=== PATIENT | female | born 1955 | race Caucasian/White ===

== ENCOUNTER 2019-02-15 13:31 | Inpatient (IN) ==
[2019-02-15] MEDS ORDERED: NORMAL SALINE 1,000 ML IV ONE (13:46)
--- NOTE | 2019-02-15 13:47 | ERNOTE ---
Medical Problem HPI - Narrative Date of Service: 02/15/19 - General Chief Complaint: Nausea/Vomiting Time Seen by Provider: 02/15/19 13:40 Source: patient, RN notes reviewed, old records Exam Limitations: no limitations - Immun/Allergies/Home Medications Immunizations: IMMUNIZATION HX Immunizations Up to Date Yes History of Influenza Vaccine No Hx Pneumococcal Vaccination Yes Allergies/Adverse Reactions: Allergies No Known Allergies Allergy (Verified 02/15/19 13:37) Home Medications: HOME MEDICATIONS Cholecalciferol (Vitamin D3) [Vitamin D] 400 unit PO DAILY 04/20/14 [Last Taken Unknown] Cinnamon Bark [Cinnamon] 2,000 mg PO DAILY 04/20/14 [Last Taken Unknown] Duloxetine HCl [Cymbalta] 20 mg PO DAILY 04/20/14 [Last Taken Unknown] Folic Acid 0.8 mg PO DAILY 04/20/14 [Last Taken Unknown] Multivitamin [Multi-Vitamin Daily] 1 ea PO DAILY 04/20/14 [Last Taken Unknown] Zinc 50 mg PO DAILY 04/20/14 [Last Taken Unknown] Ferrous Sulfate [Iron] 65 mg PO DAILY 05/01/14 [Last Taken Unknown] Cyanocobalamin [Vitamin B-12] 1,000 mcg PO DAILY 05/02/14 [Last Taken Unknown] calcium carbonate 600 mg calcium (1,500 mg) tablet 600 mg PO BID tab 05/31/18 [Last Taken Unknown] glucosamine sulfate dipotassium chloride 1,000 mg capsule 1,500 mg PO BID cap 05/31/18 [Last Taken Unknown] magnesium 250 mg tablet 250 mg PO DAILY 05/31/18 [Last Taken Unknown] ropinirole 0.25 mg tablet 8 mg PO HS tab 05/31/18 [Last Taken Unknown] alendronate 70 mg tablet 70 mg PO QWEEK #14 tab 06/08/18 [Last Taken Unknown] enalapril 10 mg-hydrochlorothiazide 25 mg tablet 1 tab PO DAILY #90 tab 06/08/18 [Last Taken Unknown] prednisone 10 mg tablet 10 mg PO QID #100 tab 06/08/18 [Last Taken Unknown] methotrexate sodium 2.5 mg tablet 25 mg PO Q7D #120 tab 09/12/18 [Last Taken Unknown] salsalate 750 mg tablet 1,500 mg PO BID #360 tab 09/12/18 [Last Taken Unknown] sulfasalazine 500 mg tablet 1.5 g PO BID #270 tab 09/12/18 [Last Taken Unknown] metoprolol tartrate 50 mg tablet 50 mg PO BID #180 tab 10/02/18 [Last Taken Unknown] amlodipine 10 mg tablet 10 mg PO DAILY #90 tab 11/08/18 [Last Taken Unknown] - History of Present History Narrative: Garima is a 63 year old female brought to the ED from the internal medicine office for a rapid heart rate. She was being seen for a 3 month recheck, but she has also been sick with vomiting and diarrhea for 4 days. She reports being unable to tolerate any oral intake so far today, but she was able to take her blood pressure and RA medications. Her EKG from the clinic showed a A fib with RVR in the 150's. She has no prior history of this. She denies any chest pain, shortness of breath or palpitations. She had been having significant abdominal pain yesterday but reports this has improved today. She currently denies any nausea. Review of Systems - Review of Systems Constitutional: Present: fatigue, malaise. Absent: fever, chills EYE: Present: no symptoms reported ENT: Present: no symptoms reported Respiratory: Absent: shortness of breath, cough, orthopnea Cardiology: Absent: chest pain, palpitations, syncope, edema Gastrointestinal/Abdominal: Present: nausea, vomiting, diarrhea, abdominal pain, eating less, drinking less Genitourinary: Absent: dysuria, decreased urinary output Musculoskeletal: Absent: muscle pain, joint pain Skin: Absent: rash, lesions Neurological: Absent: headache, dizziness/light-headedness Endocrine: Present: no symptoms reported Hematologic/Lymphatic: Absent: easy bruising, easy bleeding Psych: Present: no symptoms reported Medical History (Updated 02/15/19 @ 15:39 by Renetta Palmer NP) H/O tooth extraction Onset Date: ~02/21/18 top pulled January 31 2018 bottom up Feb 21 2018; six teeth remain on the bottom; [facility] Asthma Onset Date: Unknown Hypertension Onset Date: Unknown Osteoporosis Onset Date: ~05/11/17 Bilateral femurs need repeat in 2 years Rheumatoid arthritis Onset Date: Unknown Sleep apnea Onset Date: Unknown Surgical History: Surgical History (Updated 05/31/18 @ 11:45 by Shaila Torres RN) History of hysterectomy Onset Date: ~02/2003 [facility] BSO Hx of total knee arthroplasty Onset Date: ~2012 2009 - bilateral 2013 - redone, bilateral S/P debridement Onset Date: ~04/10/08 Irrigation, debridement and closure; Tinguely - bleeding laceration left lower extremity, 6cm Family History: Family History (Updated 05/31/18 @ 11:46 by Shaila Torres RN) Brother , age 55; unknown cause No problems noted. Father , age 69 Heart disease Mother Heart disease Asthma Rheumatoid arthritis Social History: Preferred Language Setsw[place] Smoking Status Never smoker Abuse History No History of abuse Psych History No pertinent hx Alcohol Use none Drug Use none (Last Updated 02/15/19 @ 13:35 by Davide Moreno MD) No Social History Section defined Physical Exam - Physical Exam General Appearance: Present: wd/wn, alert, other - In no acute distress but appears to not feel well Head Exam: Present: normal inspection Eye Exam: Normal inspection: bilateral Ears, Nose, Throat: Present: normal ENT inspection, normal pharynx. Absent: dry mucous membranes Neck: Present: normal inspection, nontender, supple Respiratory: Present: no respiratory distress, normal breath sounds, no access ory muscle use, lungs clear Cardiovascular/Chest: Present: tachycardia, irregularly irregular Gastrointestinal/Abdominal: Present: normal bowel sounds, nontender, nondistended, soft Extremity Exam: Present: normal inspection, non-tender, no edema Neurological Exam: Present: alert, oriented, normal mood/affect, no motor/sensory deficits Skin Exam: Present: warm/dry, pallor Progress - Results and Orders Patient's Lab Results:: I have reviewed the patient's lab results. - Vital Signs Patient's Vital Signs:: I have reviewed the patient's vital signs. Vital Signs: Vital Signs 02/15/19 13:33 Temperature 36 C Pulse Rate 140 H Respiratory Rate 17 O2 Sat by Pulse Oximetry 97 - EKG EKG #1 EKG: atrial fibrillation - Rate 151 EKG read: Reviewed by me - X-Ray X-Ray #1 X-Ray: chest Interpretation: Reviewed by me X-ray Comments: Chest PA Lateral * Hyperinflated lung volumes, with hyperlucent appearance of the lungs. No consolidation or mass. Mildly increased pulmonary vascular markings noted. No pneumothorax or pleural fluid collections. Borderline cardiomegaly. Mild tortuosity of the thoracic aorta noted, with overlying atherosclerotic vascular calcifications. Trachea is in normal position. Bones demonstrate multiple levels of contiguous syndesmophytes within the upper to midthoracic spine with multiple disc calcifications, suggestive of potential ankylosis spondylitis. IMPRESSION: 1. No focal acute cardiopulmonary finding. 2. Hyperinflated and hyperlucent lungs. Consider underlying acute versus chronic bronchitis/reactive airways disease versus COPD. 3. Borderline cardiomegaly. Mild pulmonary venous congestion. 4. Additional comments are as above. Electronically signed by Jocelyn Arnett M.D.. X-Ray #2 X-Ray: abdomen Interpretation: Reviewed by me X-ray Comments: Abdomen Flat W/ Upright *: No subdiaphragmatic free air. No abnormal dilation of large or small bowel. View air-fluid levels are noted within nondilated small and large segments throughout the abdomen. Multiple calcific ations are projecting over the lower abdomen bilaterally, some which appear to be projecting outside of the abdominal wall, which on the previous CT examination was within the subcutaneous fat in the lower back. There is no definite signs of nephrolithiasis or ureterolithiasis. Osseous structures are intact. Degenerative changes of the thoracolumbar spine and bilateral hips noted. IMPRESSION: 1. Air-fluid levels within small and large bowel segments, suggestive of either enteritis or colitis. There is no definite signs of mechanical intestinal obstruction. 2. Additional comments are as above. Electronically signed by Jocelyn Arnett M.D.. - Progress/Reassessment Chief Complaint: Nausea/Vomiting Progress:: Improved Progress Note-Subjective: 02/15/19 15:47 The patient remains in atrial fib with a rate on 130's to 150's after Cardizem bolus x2. Drip ordered. Patient remains asymptomatic with regards to the atrial fib. She has not had any further vomiting or diarrhea while in the ED and is currently drinking water. Message left for Dr. Sadler regarding admission. 02/15/19 16:[address] Sadler, the patient will be admitted to SCU on the Cardizem drip. Heart rate is currently in the 140's with a BP of 111/78. The patient reports feeling better after getting IV fluids and is in agreement with plans for admission. Departure Clinical Impression: Atrial fibrillation with rapid ventricular response, Vomiting and diarrhea - Departure Disposition: Still a patient Condition: Stable
[2019-02-15 14:10] LABS: Hematocrit 40.1 % (37.0-47.0); Mean Cell Volume 82.9 fl (78-100); Mean Corpuscular Hemoglobin 26.9 pg (27-31); Mean Corpuscular Hgb Conc 32.4 g/dl (32-36); Mean Platelet Volume 10.8 fl (8-12.5); Neutrophil # 6.9 K/mm3 (1.3-6.0); Neutrophil % 72.2 % (42-75.0); Platelet Count 300 K/mm3 (150-450); Red Blood Count 4.84 M/mm3 (4.2-5.4); Red Cell Distribution Width 14.3 % (11.5-14.0); White Blood Count 9.6 K/mm3 (4.0-10.5)
[2019-02-15 14:22] LABS: Albumin * 3.2 gm/dl (3.4-5.0); Anion Gap 15.1 mmol/L (6.8-13.8); BUN/Creatinine Ratio 20.9 (9.0-21.6); Bilirubin, Total 0.7 mg/dL (0.0-1.1); Ca. Corrected For Albumin 9.8 mg/dL (8.4-10.2); Calcium * 9.5 mg/dL (7.9-10.9); Carbon Dioxide 24.9 mmol/L (24-32.6); Total Protein 7.8 gm/dL (6.2-8.2)
[2019-02-15] MEDS ORDERED: DILTIAZEM HCL 5 MG/ML VIAL IV ONE ×2 (14:27→15:21)
[2019-02-15 14:50] LABS: Troponin I Less than 0.017 ng/mL (0.00-0.10)
[2019-02-15 14:53] LABS: BNP * 1898 pg/mL (5-205)
[2019-02-15] MEDS ORDERED: DILTIAZEM HCL 125 MG in DEXTROSE 5 % IN WATER 100 ML IV PRN ×2 (15:34)
[2019-02-15] MEDS ORDERED: FUROSEMIDE 10 MG/ML VIAL IV ONE (16:09)
[2019-02-15] MEDS ORDERED: FUROSEMIDE 10 MG/ML VIAL ONE (17:27)
[2019-02-15] MEDS ORDERED: AMIODARONE HCL 150 MG/100 ML PIGGYBACK IV ONE ×2 (18:15→19:25)
--- NOTE | 2019-02-15 18:37 | HP ---
Chief Complaint - Chief Complaint Date of Service: 02/15/19 Time of Service: 18:00 Chief Complaint: atrial fib with RVR. History of Present Illness: Vanessa Jolly is a 63-year-old female who presented to the ER because of fatigue. She has long-standing history of rheumatoid arthritis for which she takes many medications and supplements. About 2 weeks ago she noticed that she was not feeling as well as usual and has had just progressive fatigue since that time. Evaluation in the emergency room determined that she is in atrial fibrillation with rapid ventricular response rate of 150 to 190 bpm. She is tolerating it remarkably well. There is no dyspnea. Neck veins are not distended and the HJR is negative at 45 degrees. There is no peripheral edema. She has no chest pressure heaviness or other discomfort. She has never had this happen before that she is aware. She was given Cardizem bolus and placed on a Cardizem drip in the emergency room and it has not converted her. She is admitted to the SCU unit to try to to chemically convert her. Because we are uncertain as to when the atrial fib actually started she is not a candidate for DC cardioversion at this time. She is not anticoagulated. Medical History (Updated 02/15/19 @ 15:39 by Renetta Palmer NP) H/O tooth extraction Onset Date: ~02/21/18 top pulled January 31 2018 bottom up Feb 21 2018; six teeth remain on the bottom; [facility] Asthma Onset Date: Unknown Hypertension Onset Date: Unknown Osteoporosis Onset Date: ~05/11/17 Bilateral femurs need repeat in 2 years Rheumatoid arthritis Onset Date: Unknown Sleep apnea Onset Date: Unknown Surgical History: Surgical History (Updated 05/31/18 @ 11:45 by Shaila Torres RN) History of hysterectomy Onset Date: ~02/2003 [facility] BSO Hx of total knee arthroplasty Onset Date: ~2012 2009 - bilateral 2013 - redone, bilateral S/P debridement Onset Date: ~04/10/08 Irrigation, debridement and closure; Tinguely - bleeding laceration left lower extremity, 6cm Family History: Family History (Updated 05/31/18 @ 11:46 by Shaila Torres RN) Brother , age 55; unknown cause No problems noted. Father , age 69 Heart disease Mother Heart disease Asthma Rheumatoid arthritis Social History: Patient Lives/Resources Home Utilized Occupation disabled Preferred Language Tajik Do you have any scientologist or No cultural preference? Smoking Status Never smoker Have you smoked in the past 12 No months Do you dip or chew tobacco No Abuse History No History of abuse Psych History No pertinent hx Alcohol Use none Drug Use none (Last Updated 02/15/19 @ 13:35 by Davide Moreno MD) No Social History Section defined Review Of Systems (GEN) - Review of Systems Generalized/Overall Review: Present: Weakness, Malaise, Fatigue EENTM: Present: No Symptoms Reported Respiratory: Present: No Symptoms Reported Cardiac: Present: Palpitations Abdominal: Present: No Symptoms Reported Genitourinary: Present: No Symptoms Reported Musculoskeletal: Present: Joint Pain - Due to long-standing rheumatoid arthritis Neurological: Present: No Symptoms Reported Skin: Present: No Symptoms Reported Endocrine: Present: No Symptoms Reported Immunizations: IMMUNIZATION HX Immunizations Up to Date Yes History of Influenza Vaccine No Hx Pneumococcal Vaccination Yes Allergies/Adverse Reactions: Allergies Allergy/AdvReac Type Severity Reaction Status Date / Time No Known Allergies Allergy Verified 02/15/19 16:41 Home Medications: HOME MEDICATIONS Cholecalciferol (Vitamin D3) [Vitamin D] 400 unit PO DAILY 04/20/14 [Last Taken Unknown] Cinnamon Bark [Cinnamon] 2,000 mg PO DAILY 04/20/14 [Last Taken Unknown] Duloxetine HCl [Cymbalta] 20 mg PO DAILY 04/20/14 [Last Taken Unknown] Folic Acid 0.8 mg PO DAILY 04/20/14 [Last Taken Unknown] Multivitamin [Multi-Vitamin Daily] 1 ea PO DAILY 04/20/14 [Last Taken Unknown] Zinc 50 mg PO DAILY 04/20/14 [Last Taken Unknown] Ferrous Sulfate [Iron] 65 mg PO DAILY 05/01/14 [Last Taken Unknown] Cyanocobalamin [Vitamin B-12] 1,000 mcg PO DAILY 05/02/14 [Last Taken Unknown] calcium carbonate 600 mg calcium (1,500 mg) tablet 600 mg PO BID tab 05/31/18 [Last Taken Unknown] glucosamine sulfate dipotassium chloride 1,000 mg capsule 1,500 mg PO BID cap 05/31/18 [Last Taken Unknown] magnesium 250 mg tablet 250 mg PO DAILY 05/31/18 [Last Taken Unknown] alendronate 70 mg tablet 70 mg PO QWEEK #14 tab 06/08/18 [Last Taken Unknown] enalapril 10 mg-hydrochlorothiazide 25 mg tablet 1 tab PO DAILY #90 tab 06/08/18 [Last Taken Unknown] methotrexate sodium 2.5 mg tablet 25 mg PO Q7D #120 tab 09/12/18 [Last Taken Unknown] salsalate 750 mg tablet 1,500 mg PO BID #360 tab 09/12/18 [Last Taken Unknown] sulfasalazine 500 mg tablet 1.5 g PO BID #270 tab 09/12/18 [Last Taken Unknown] metoprolol tartrate 50 mg tablet 50 mg PO BID #180 tab 10/02/18 [Last Taken Unknown] amlodipine 10 mg tablet 10 mg PO DAILY #90 tab 11/08/18 [Last Taken Unknown] Exam - Exam Vital Signs: Vital Signs - Last Taken Temp 36 C 02/15/19 13:33 Pulse 148 H 02/15/19 17:40 Resp 16 02/15/19 17:40 BP 140/86 02/15/19 17:40 Pulse Ox 97 02/15/19 16:40 Constitutional: Present: Alert, Oriented x3, Cooperative, Well developed, Well nourished, No distress ENT Exam: Present: normal ENT inspection, hearing grossly normal, pharynx normal, TMs normal Eye Exam: bilateral eye: normal inspection, PERRL, EOMI Neck: Present: non-tender, full range of motion, supple, normal inspection, trachea midline Back Exam: Present: normal inspection, no CVA tenderness, no vertebral tenderness Breasts: Present: Exam deferred Respiratory: Present: chest non-tender, lungs clear, normal breath sounds, no respiratory distress, no accessory muscle use Cardiovascular/Chest: Present: no edema, no gallop, no JVD, no murmur, no rub, tachycardia, irregularly irregular Peripheral Pulses: carotid (R): 2+, carotid (L): 2+, radial (R): 2+, radial (L): 2+ Abdomen: Present: Normal bowel sounds, soft, nontender, nondistended, no rebound tenderness, no hepatospenomegaly, no masses /Rectal: Present: Exam deferred Extremity: Present: normal range of motion, other - Polyarthralgias. She has had both knees replaced twice and is looking at a third time. Skin Exam: Present: warm/dry, pallor Lymphatic: Present: no adenopathy Neurologic: Present: sound printer II-XII nml as tested, alert, normal mood/affect, oriented x 3 Appearance: Present: appropriate appearance, appropriate insight, neat, no memory impairment Eye contact: Present: cooperative, good eye contact, normal speech Thoughts: Present: normal thought pattern, no apparent hallucination Diagnostic Studies: Abnormal Lab Results 02/15/19 02/15/19 02/15/19 Range/Units 14:02 14:02 14:12 MCH 26.9 L (27-31) pg RDW 14.3 H (11.5-14.0) % Immature Gran % (Auto) 0.50 H (0.001-0.429) % Immature Gran # (Auto) 0.05 H (0.000-0.0310) K/mm3 Lymphocytes % 15.1 L (20-51) % Monocytes % 11.9 H (0.0-9) % Neutrophils # 6.9 H (1.3-6.0) K/mm3 Lymphocytes # 1.45 L (1.5-3.5) k/mm3 Monocytes # 1.1 H (0.0-1.0) k/mm3 Anion Gap 15.1 H (6.8-13.8) mmol/L Random Glucose 157 H (70-110) mg/dL B-Natriuretic Peptide 1898 H (5-205) pg/mL Albumin 3.2 L (3.4-5.0) gm/dl HDL Cholesterol (40-60) mg/dL 02/15/19 Range/Units 14:46 MCH (27-31) pg RDW (11.5-14.0) % Immature Gran % (Auto) (0.001-0.429) % Immature Gran # (Auto) (0.000-0.0310) K/mm3 Lymphocytes % (20-51) % Monocytes % (0.0-9) % Neutrophils # (1.3-6.0) K/mm3 Lymphocytes # (1.5-3.5) k/mm3 Monocytes # (0.0-1.0) k/mm3 Anion Gap (6.8-13.8) mmol/L Random Glucose (70-110) mg/dL B-Natriuretic Peptide (5-205) pg/mL Albumin (3.4-5.0) gm/dl HDL Cholesterol 39 L (40-60) mg/dL Laboratory Results WBC 9.6 K/mm3 (4.0-10.5) 02/15/19 14:02 RBC 4.84 M/mm3 (4.2-5.4) 02/15/19 14:02 Hgb 13.0 gm/dL (12.5-16.0) 02/15/19 14:02 Hct 40.1 % (37.0-47.0) 02/15/19 14:02 MCV 82.9 fl (78-100) 02/15/19 14:02 MCH 26.9 pg (27-31) L 02/15/19 14:02 MCHC 32.4 g/dl (32-36) 02/15/19 14:02 RDW 14.3 % (11.5-14.0) H 02/15/19 14:02 Plt Count 300 K/mm3 (150-450) 02/15/19 14:02 MPV 10.8 fl (8-12.5) 02/15/19 14:02 Immature Gran % (Auto) 0.50 % (0.001-0.429) H 02/15/19 14:02 Immature Gran # (Auto) 0.05 K/mm3 (0.000-0.0310) H 02/15/19 14:02 72.2 % (42-75.0) 02/15/19 14:02 15.1 % (20-51) L 02/15/19 14:02 11.9 % (0.0-9) H 02/15/19 14:02 0.1 % (0.0-3.0) 02/15/19 14:02 0.2 % (0.0-1.0) 02/15/19 14:02 Nucleated RBC % 0.0 k/mm3 (0-1) 02/15/19 14:02 6.9 K/mm3 (1.3-6.0) H 02/15/19 14:02 1.45 k/mm3 (1.5-3.5) L 02/15/19 14:02 1.1 k/mm3 (0.0-1.0) H 02/15/19 14:02 0.0 k/mm3 (0.0-0.7) 02/15/19 14:02 Absolute Basophils 0.0 k/mm3 (0.0-0.1) 02/15/19 14:02 Sodium 137 mmol/L (132-142) 02/15/19 14:02 138 mmol/L (130-142) 02/15/19 14:02 Potassium 4.0 mmol/L (3.4-4.6) 02/15/19 14:02 Chloride 101 mmol/L (97-106) 02/15/19 14:02 Carbon Dioxide 24.9 mmol/L (24-32.6) 02/15/19 14:02 15.1 mmol/L (6.8-13.8) H 02/15/19 14:02 BUN 14 mg/dL (3-23) 02/15/19 14:02 0.67 mg/dL (0.4-1.4) 02/15/19 14:02 Est GFR (Non-Af Amer) 94 mL/min (60-130) D 02/15/19 14:02 20.9 (9.0-21.6) 02/15/19 14:02 157 mg/dL (70-110) H 02/15/19 14:02 Calcium 9.5 mg/dL (7.9-10.9) 02/15/19 14:02 Calcium Adj for Albumin 9.8 mg/dL (8.4-10.2) 02/15/19 14:02 Magnesium 2.1 mg/dL (1.2-2.8) 02/15/19 13:35 0.7 mg/dL (0.0-1.1) 02/15/19 14:02 AST 35 U/L (0-48) 02/15/19 14:02 ALT 42 U/L (19-67) 02/15/19 14:02 124 U/L (50-170) 02/15/19 14:02 Less than 0.017 ng/mL (0.00-0.10) 02/15/19 14:12 B-Natriuretic Peptide 1898 pg/mL (5-205) H 02/15/19 14:12 7.8 gm/dL (6.2-8.2) 02/15/19 14:02 3.2 gm/dl (3.4-5.0) L 02/15/19 14:02 Triglycerides 82 mg/dL (30-200) 02/15/19 14:46 Cholesterol 159 mg/dL (0-200) 02/15/19 14:46 104 mg/dL (70-130) 02/15/19 14:46 16 mg/dL (5-40) 02/15/19 14:46 39 mg/dL (40-60) L 02/15/19 14:46 4.0 mg/dL (3.3-4.4) 02/15/19 14:46 Assessment/Plan - Narrative Narrative: Since the Cardizem is at max dose and has not even slowed her heart rate down I will abandon that and change to amiodarone using our protocol. We will start with the 150 mg over 10 minutes at a rate of 15 mg/min. This will then be followed by the slow load of 360 mg over 6 hours or 1 mg/min. I reconciled her medications and held a lot of her supplements. I have continued most of the prescriptive meds. Please see list. She has been given 40 mg of Lasix IV in the emergency room and is diuresing well at this time. Chest x-ray appears to have some mild pulmonary vascular congestion. I suspect that she has been in his atrial fibrillation and RVR for it may be as much as 2 weeks since test when she started feeling badly. Causes unknown at this point. - Assessment/Plan (1) Atrial fibrillation with rapid ventricular response Problem: Acute (2) Rheumatoid arthritis Problem: Acute Qualifiers: Rheumatoid arthritis location: multiple sites Rheumatoid factor presence: with rheumatoid factor Qualified Code(s): M05.79 - Rheumatoid arthritis with rheumatoid factor of multiple sites without organ or systems involvement
[2019-02-15] MEDS: AMIODARONE HCL 900 MG in DEXTROSE 5 % IN WATER 500 ML IV SCH ×2 (19:54)
[2019-02-15] MEDS ORDERED: sulfaSALAzine 500 MG TABLET PO SCH (21:00)
[2019-02-15] MEDS: sulfaSALAzine 500 MG TABLET PO SCH (21:06)
[2019-02-15] MEDS: METOPROLOL TARTRATE 50 MG TABLET PO SCH (21:08)
[2019-02-15] MEDS: SALSALATE 500 MG TABLET PO SCH (21:08)
[2019-02-16] MEDS ORDERED: DIGOXIN 0.25 MG/ML AMPUL IV SCH (06:15)
[2019-02-16] MEDS: SALSALATE 500 MG TABLET PO SCH ×2 (08:06→20:48)
[2019-02-16] MEDS: DULoxetine HCL 20 MG CAPSULE.SA PO SCH (08:06)
[2019-02-16] MEDS: amLODIPine BESYLATE 10 MG TABLET PO SCH (08:06)
[2019-02-16] MEDS: FOLIC ACID 0.4 MG TABLET PO SCH (08:06)
[2019-02-16] MEDS: sulfaSALAzine 500 MG TABLET PO SCH ×2 (08:06→20:48)
[2019-02-16] MEDS: FERROUS SULFATE 325 MG TABLET PO SCH (08:06)
[2019-02-16] MEDS: ENALAPRIL MALEATE 5 MG TABLET PO SCH (08:07)
[2019-02-16] MEDS: METOPROLOL TARTRATE 50 MG TABLET PO SCH (08:07)
[2019-02-16] MEDS: HYDROCHLOROTHIAZIDE 25 MG TABLET PO SCH (08:07)
--- NOTE | 2019-02-16 08:42 | CONS ---
- Reason for consultation (1) Atrial fibrillation with rapid ventricular response Date of Service: 02/16/19 HPI - General Date of Service: 02/16/19 Source: patient Exam Limitations: no limitations - History of Present Illness Initial Comments: Giulia Jolly is a 63-year-old white female patient of Dr. Moreno who was admitted on 02/15/[address] Sadler because of atrial fibrillation with rapid ventricular response. The patient was seen in her PCP's office and was found to be in atrial fibrillation with rapid ventricular response. She was sent to the emergency room where EKG and telemetry showed atrial fibrillation with a ventricular response of 140s to 150s. Her troponin was normal and her BNP was elevated at 1898. Her electrolytes were all within normal. 4 days prior to admission she started having diarrhea, 4-5 times a day initially big volume then settled down to small volume associated at times with nausea and vomiting. She denied any fever or chills, denies any chest pain or shortness of breath, denied any palpitations. Her abdominal x-ray did show possible colitisenteritis. She was given 2 boluses of Cardizem IV and was started on Cardizem drip and transferred to the unit. Her ventricular rapid response remained in the 130s- 150s despite maximum dose of Cardizem drip. Dr. Sadler discontinued her Cardizem drip and started her on 150 mg of amiodarone bolus and maintenance amiodarone drip. So far she has received a total dose of about 650-700 mg of amiodarone. She also received 1 dose of IV digoxin 0.25 mg. She is still in the 150s but hemodynamically stable and asymptomatic. On further questioning she said that her last visit was 3 months ago with her PCP and at that time she did have episodes of palpitation/rapid heartbeat which lasted for 5 to 6 weeks which resolved spontaneously. Timing/Duration: intermittent Allergies/Adverse Reactions: Allergies No Known Allergies Allergy (Verified 02/15/19 16:41) Home Medications: Home Medications Medication Instructions Recorded Last Taken Cholecalciferol (Vitamin D3) 400 unit PO DAILY 04/20/14 Unknown [Vitamin D] Cinnamon Bark [Cinnamon] 2,000 mg PO DAILY 04/20/14 Unknown Duloxetine HCl [Cymbalta] 20 mg PO DAILY 04/20/14 Unknown Folic Acid 0.8 mg PO DAILY 04/20/14 Unknown Multivitamin [Multi-Vitamin Daily] 1 ea PO DAILY 04/20/14 Unknown Zinc 50 mg PO DAILY 04/20/14 Unknown Ferrous Sulfate [Iron] 65 mg PO DAILY 05/01/14 Unknown Cyanocobalamin [Vitamin B-12] 1,000 mcg PO DAILY 05/02/14 Unknown calcium carbonate 600 mg calcium 600 mg PO BID tab 05/31/18 Unknown (1,500 mg) tablet glucosamine sulfate dipotassium 1,500 mg PO BID cap 05/31/18 Unknown chloride 1,000 mg capsule magnesium 250 mg tablet 250 mg PO DAILY 05/31/18 Unknown alendronate 70 mg tablet 70 mg PO QWEEK #14 tab 06/08/18 Unknown enalapril 10 1 tab PO DAILY #90 tab 06/08/18 Unknown mg-hydrochlorothiazide 25 mg tablet methotrexate sodium 2.5 mg tablet 25 mg PO Q7D #120 tab 09/12/18 Unknown salsalate 750 mg tablet 1,500 mg PO BID #360 tab 09/12/18 Unknown sulfasalazine 500 mg tablet 1.5 g PO BID #270 tab 09/12/18 Unknown metoprolol tartrate 50 mg tablet 50 mg PO BID #180 tab 10/02/18 Unknown amlodipine 10 mg tablet 10 mg PO DAILY #90 tab 11/08/18 Unknown Procedures Closure of skin and subcutaneous tissue of other sites (04/10/08) INJECT STEROID (02/06/10) INJECT/INFUSE NEC (02/06/10) INJECTION INTO JOINT (02/06/10) OTHER JOINT MOBILIZATION (02/06/10) Other dilation and curettage (10/22/02) TOTAL KNEE REPLACEMENT (01/01/10) Medications - Medications Current Medications: Current Medications Amlodipine Besylate (Norvasc) 10 mg PO DAILY [facility] Stop: 03/18/19 09:01 Last Admin: 02/16/19 08:06 Dose: 10 mg Documented by: Digoxin (Lanoxin) 0.25 mg IV Q6H [facility] Stop: 02/16/19 12:16 Last Admin: 02/16/19 06:56 Dose: 0.25 mg Documented by: Duloxetine HCl (Cymbalta) 20 mg PO DAILY [facility] Stop: 03/18/19 09:01 Last Admin: 02/16/19 08:06 Dose: 20 mg Documented by: Enalapril Maleate (Vasotec) 10 mg PO DAILY [facility] Stop: 03/18/19 09:01 Last Admin: 02/16/19 08:07 Dose: 10 mg Documented by: Ferrous Sulfate (Ferrous Sulfate) 325 mg PO DAILY [facility] Stop: 03/18/19 09:01 Last Admin: 02/16/19 08:06 Dose: 325 mg Documented by: Folic Acid (Folic Acid) 0.8 mg PO DAILY [facility] Stop: 03/18/19 09:01 Last Admin: 02/16/19 08:06 Dose: 0.8 mg Documented by: Hydrochlorothiazide (Hydrodiuril) 25 mg PO DAILY [facility] Stop: 03/18/19 09:01 Last Admin: 02/16/19 08:07 Dose: 25 mg Documented by: Amiodarone HCl 900 mg/ (Dextrose/Water) 518 mls @ 0 mls/hr IV Q24H [facility]; Protocol Stop: 02/16/19 19:06 Last Titration: 02/16/19 01:55 Dose: 16.7 mls/hr Documented by: Metoprolol Tartrate (Lopressor) 50 mg PO BID [facility] Stop: 03/17/19 21:01 Last Admin: 02/16/19 08:07 Dose: 50 mg Documented by: Salsalate (Disalcid) 1,500 mg PO BID [facility] Stop: 03/17/19 21:01 Last Admin: 02/16/19 08:06 Dose: 1,500 mg Documented by: Sulfasalazine (Azulfidine) 1,500 mg PO BID [facility] Stop: 03/17/19 21:01 Last Admin: 02/16/19 08:06 Dose: 1,500 mg Documented by: Review of Systems - Review of Systems Generalized/Overall Review: Absent: Chills, Fever EENTM: Absent: Blurred Vision Respiratory: Absent: Cough, Shortness of Breath, Orthopnea Cardiac: Absent: Chest Pain, Edema, Palpitations Abdominal: Present: Nausea, Vomiting, Diarrhea. Absent: Abdominal Pain Genitourinary: Absent: Urgency, Frequency Musculoskeletal: Absent: Joint Pain, Back Pain Neurological: Absent: Headache, Anxiety, Depressed Skin: Absent: Lesions, Rash Endocrine: Absent: Intolerance to Cold, Intolerance to Heat Misc: All systems neg except as marked Physical Examination - Exam Vital Signs: Vital Signs - Last Taken Temp 36.7 C 04/26/19 07:07 Pulse 164 H 02/16/19 08:07 Resp 16 02/16/19 08:10 BP 142/72 02/16/19 08:07 Pulse Ox 100 02/16/19 08:10 O2 Oxygen Delivery Method Room Air Constitutional: Present: Alert, Oriented x3, Cooperative ENT Exam: Present: hearing grossly normal Eye Exam: bilateral eye: normal inspection, PERRL, EOMI Neck: Present: supple Respiratory: Present: normal breath sounds, No rales, No wheezing Cardiovascular/Chest: Present: no JVD, no murmur, tachycardia, irregularly irregular Abdomen: Present: Normal bowel sounds, soft, nontender, nondistended Extremity: Present: no pedal edema, no calf tenderness - Results and Findings: Lab/Microbiology results last 24 hrs: Abnormal/Pending Laboratory Last 24 HRS 02/15/19 02/15/19 02/15/19 14:46 14:12 14:02 MCH RDW Immature Gran % (Auto) Immature Gran # (Auto) Lymphocytes % Monocytes % Neutrophils # Lymphocytes # Monocytes # Anion Gap 15.1 H Random Glucose 157 H B-Natriuretic Peptide 1898 H Albumin 3.2 L HDL Cholesterol 39 L 02/15/19 14:02 MCH 26.9 L RDW 14.3 H Immature Gran % (Auto) 0.50 H Immature Gran # (Auto) 0.05 H Lymphocytes % 15.1 L Monocytes % 11.9 H Neutrophils # 6.9 H Lymphocytes # 1.45 L Monocytes # 1.1 H Anion Gap Random Glucose B-Natriuretic Peptide Albumin HDL Cholesterol - Assessments/Findings (1) Atrial fibrillation with rapid ventricular response Diagnosis(s): She remains with RVR but hemodynamically stable. Continue with IV amiodarone drip. will advance another 0.25 mg of IV digoxin now and do 0.125 mg IV q 6 hours x 4 doses. She is already on metoprolol from home. will get Echo and add TSH to her labs. She needs to be anticoagualted with coumadin or one of the newer anticoagulants. It looks she has PAF/Intermittent AFib . Since we are not sure when she started to have her AFib alternative plans are for anticoagulation for 4 weeks and then schedule her back for elective cardioverion if her ventricular rate is controlled or we can transfer her to a facility for DONNA and earlier cardioversion/ or schedule her outpatient for earlier elective DONNA and cardioversion if her HR is controlled. Discussed with Dr. Sadler- she can be on 2-4 drugs to control her HR but watch out for heart blocks. Addendum : Her TSH is 0.009 . Will add FT4 and thyroid peroxidase antibody. recommend increasing metoprolol tartrate to block peripheral effects of possible elevated thyroid hormones. Problem: Acute (2) Rheumatoid arthritis Problem: Acute Qualifiers: Rheumatoid arthritis location: multiple sites Rheumatoid factor presence: with rheumatoid factor Qualified Code(s): M05.79 - Rheumatoid arthritis with rheumatoid factor of multiple sites without organ or systems involvement (3) Vomiting and diarrhea Problem: Acute
[2019-02-16] MEDS ORDERED: DIGOXIN 0.25 MG/ML AMPUL IV ONE (08:45)
--- NOTE | 2019-02-16 09:30 | PN ---
Subjective - Date and Time Seen Date: 02/16/19 Time: 09:23 Subjective Narrative: Marian has had an uneventful night but continues to be in atrial fibrillation RVR. Initially will use Cardizem to his max dose and did not affect the rate. She was then changed to amiodarone last evening and has been on that through the night and that did not change the rate either. I started her on Lanoxin this morning. Dr. Valladares has graciously seen her in consultation this morning and is much appreciated. Has increased a loading dose of the Lanoxin. She will need an echocardiogram and perhaps a DONNA before electrocardioversion is attempted. I will keep her in [facility] being constantly monitored in case she were to develop a high degree block. Objective - Review of Systems Generalized/Overall Review: Reports: Weakness, Malaise, Fatigue EENTM: Reports: No Symptoms Reported Respiratory: Reports: No Symptoms Reported Cardiac: Reports: Palpitations Abdominal: Reports: No Symptoms Reported Genitourinary Symptoms: Reports: No Symptoms Reported Musculoskeletal Complaints: Reports: No Symptoms Reported Neurological: Reports: No Symptoms Reported Skin: Reports: No Symptoms Reported Endocrine: Reports: No Symptoms Reported - Vitals Vitals: Last Vital Signs Temp 36.7 C 02/16/19 07:07 Pulse 150 H 02/16/19 08:35 Resp 16 02/16/19 08:35 BP 146/73 02/16/19 08:35 Pulse Ox 100 02/16/19 08:35 - Abnormal Lab Findings Abnormal Lab Findings: Abnormal Lab Results 02/15/19 02/15/19 02/15/19 Range/Units 14:02 14:02 14:12 MCH 26.9 L (27-31) pg RDW 14.3 H (11.5-14.0) % Immature Gran % (Auto) 0.50 H (0.001-0.429) % Immature Gran # (Auto) 0.05 H (0.000-0.0310) K/mm3 Lymphocytes % 15.1 L (20-51) % Monocytes % 11.9 H (0.0-9) % Neutrophils # 6.9 H (1.3-6.0) K/mm3 Lymphocytes # 1.45 L (1.5-3.5) k/mm3 Monocytes # 1.1 H (0.0-1.0) k/mm3 Anion Gap 15.1 H (6.8-13.8) mmol/L Random Glucose 157 H (70-110) mg/dL B-Natriuretic Peptide 1898 H (5-205) pg/mL Albumin 3.2 L (3.4-5.0) gm/dl HDL Cholesterol (40-60) mg/dL 02/15/19 Range/Units 14:46 MCH (27-31) pg RDW (11.5-14.0) % Immature Gran % (Auto) (0.001-0.429) % Immature Gran # (Auto) (0.000-0.0310) K/mm3 Lymphocytes % (20-51) % Monocytes % (0.0-9) % Neutrophils # (1.3-6.0) K/mm3 Lymphocytes # (1.5-3.5) k/mm3 Monocytes # (0.0-1.0) k/mm3 Anion Gap (6.8-13.8) mmol/L Random Glucose (70-110) mg/dL B-Natriuretic Peptide (5-205) pg/mL Albumin (3.4-5.0) gm/dl HDL Cholesterol 39 L (40-60) mg/dL - EKG/Xray Findings EKG: supravent. tachycardia, atrial fibrillation EKG read: Reviewed by me - Exam Constitutional: Present: Alert, Oriented x3, Cooperative, Well developed, Well nourished, No distress ENT Exam: Present: normal ENT inspection, hearing grossly normal, pharynx normal Neck: Present: non-tender Breasts: Present: Exam deferred Respiratory: Present: chest non-tender Cardiovascular/Chest: Present: tachycardia, irregularly irregular Abdomen: Present: Normal bowel sounds, soft, nontender, nondistended, no rebound tenderness, no hepatospenomegaly, no masses /Rectal: Present: Exam deferred Extremity: Present: normal range of motion Skin Exam: Present: normal color Lymphatic: Present: no adenopathy Neurologic: Present: cook starch II-XII nml as tested Appearance: Present: appropriate appearance Eye contact: Present: cooperative Thoughts: Present: normal thought pattern Assessment/Plan Plan Narrative: 1. Increase initial dose of digoxin to 0.5 mg and then give 0.125 mg every 6 hours 2. Continue amiodarone at 0.5 mg/cc/min 3. Add Eliquis 5 mg p.o. twice daily 4. Continue metoprolol 50 mg p.o. twice daily 5. Up in chair for all meals. 6. Echocardiogram today. - Problems/Diagnosis (1) Atrial fibrillation with rapid ventricular response Problem: Acute (2) Rheumatoid arthritis Problem: Acute Qualifiers: Rheumatoid arthritis location: multiple sites Rheumatoid factor presence: with rheumatoid factor Qualified Code(s): M05.79 - Rheumatoid arthritis with rheumatoid factor of multiple sites without organ or systems involvement
[2019-02-16] MEDS: APIXABAN 5 MG TABLET PO SCH ×2 (09:41→20:48)
[2019-02-16] MEDS: DIGOXIN 0.25 MG/ML AMPUL IV SCH ×3 (12:13→23:42)
[2019-02-16] MEDS ORDERED: AMIODARONE HCL 150 MG in DEXTROSE 5 % IN WATER 100 ML IV ONE ×2 (14:15)
--- NOTE | 2019-02-16 14:35 | PN ---
Lianet Note - Interim Date: 02/16/19 Time: 14:29 Narrative: 02/16/19 14:29 I have spoken with To lime supervisor in [place] and reviewed Mrs. Jolly's case with him. He agrees that the best approach is to get a transesophageal echocardiogram done. However they would not be able to do it until Tuesday. They have scheduled her for 11:30 AM to have the study done and she is to be there no later than 1030 that morning. He recommended that I give her another 150 mg bolus of amiodarone and then return to the drip. He agrees with Eliquis as a good anticoagulant for her. He agrees with increasing the metoprolol 200 mg twice daily p.o. And he is aware that she is also on Lanoxin. I have had a lengthy discussion with Mrs. Jolly this afternoon bringing her up-to-date on test results, consultations, and recommendations. I gave her the option of being transferred to [place] today, staying here through the weekend, or going home for the weekend and then presenting to [place] as an outpatient. She believes she would rather stay here. The general consensus is that ideally she should be in our hospital or [facility] for continued monitoring in case she should develop a advanced heart block. In retrospect, the diarrhea events that she had had, the 40 pound weight loss she has had in the last 8 months, and her cardiac dysrhythmia are probably all related to hyperthyroidism. The echocardiogram shows moderate dilation of the left atrium and moderate aortic stenosis. I will continue to round on her through the weekend. I am also adding methimazole to start with 10 mg every 8 hours p.o.
[2019-02-16] MEDS: METHIMAZOLE 10 MG TABLET PO SCH ×2 (14:53→23:42)
--- NOTE | 2019-02-16 15:45 | ECHO ---
This report is available in the EMR
[2019-02-16] MEDS: METOPROLOL TARTRATE 100 MG TABLET PO SCH (20:48)
[2019-02-16] MEDS: AMIODARONE HCL 900 MG in DEXTROSE 5 % IN WATER 500 ML IV SCH ×4 (21:16→21:32)
[2019-02-17 06:50] LABS: Anion Gap 14.2 mmol/L (6.8-13.8); BUN/Creatinine Ratio 18.8 (9.0-21.6); Calcium * 9.3 mg/dL (7.9-10.9); Carbon Dioxide 27.5 mmol/L (24-32.6); Digoxin 0.8 ng/mL (0.5-2.0); Estimated Creat Clear 104.3; Potassium 3.7 mmol/L (3.4-4.6)
[2019-02-17] MEDS: DIGOXIN 0.25 MG/ML AMPUL IV SCH (06:50)
[2019-02-17] MEDS: METHIMAZOLE 10 MG TABLET PO SCH ×3 (06:50→22:27)
[2019-02-17] MEDS: sulfaSALAzine 500 MG TABLET PO SCH ×2 (09:32→21:01)
[2019-02-17] MEDS: DULoxetine HCL 20 MG CAPSULE.SA PO SCH (09:33)
[2019-02-17] MEDS: FOLIC ACID 0.4 MG TABLET PO SCH (09:33)
[2019-02-17] MEDS: SALSALATE 500 MG TABLET PO SCH ×2 (09:33→21:02)
[2019-02-17] MEDS: FERROUS SULFATE 325 MG TABLET PO SCH (09:33)
[2019-02-17] MEDS: HYDROCHLOROTHIAZIDE 25 MG TABLET PO SCH (09:33)
[2019-02-17] MEDS: APIXABAN 5 MG TABLET PO SCH ×2 (09:33→21:02)
[2019-02-17] MEDS: METOPROLOL TARTRATE 100 MG TABLET PO SCH (09:34)
[2019-02-17] MEDS: ENALAPRIL MALEATE 5 MG TABLET PO SCH (09:34)
[2019-02-17] MEDS: amLODIPine BESYLATE 10 MG TABLET PO SCH (09:34)
--- NOTE | 2019-02-17 18:32 | PN ---
Subjective - Date and Time Seen Date: 02/17/19 Time: 18:00 Subjective Narrative: Garima has had an uneventful day and night last night. Her HR is slowing into the 1teens and the lowest has been 95. It is slow enough to now see a flutter pattern with the fibrillation. Her BP has dropped some with the systolic into the 90s at one time today. It was about 1 hr. after getting the Methimazole. It is now 147/76. skin WDP, HRRR, CTA, abd ok. AM lab is WnL and the dig level is therapeutic at .8. The thyroid US shows a heterogenous pattern not specific for any disease state. No nodules, enlargement or abnormal blood flow. Objective - Review of Systems Generalized/Overall Review: Reports: No Symptoms Reported EENTM: Reports: No Symptoms Reported Respiratory: Reports: No Symptoms Reported Cardiac: Reports: Palpitations Abdominal: Reports: No Symptoms Reported Genitourinary Symptoms: Reports: No Symptoms Reported Musculoskeletal Complaints: Reports: No Symptoms Reported Neurological: Reports: No Symptoms Reported Skin: Reports: No Symptoms Reported Endocrine: Reports: Other - Has hyperthyroidism - Vitals Vitals: Last Vital Signs Temp 36.7 C 02/17/19 17:09 Pulse 131 H 02/17/19 18:00 Resp 16 02/17/19 17:09 BP 147/72 02/17/19 18:00 Pulse Ox 99 02/17/19 18:00 - Abnormal Lab Findings Abnormal Lab Findings: Abnormal Lab Results 02/17/19 Range/Units 06:00 Anion Gap 14.2 H (6.8-13.8) mmol/L Est GFR (Non-Af Amer) 139 H D (60-130) mL/min Random Glucose 121 H (70-110) mg/dL - Exam Constitutional: Present: Alert, Oriented x3, Cooperative, Well developed, Well nourished, No distress ENT Exam: Present: normal ENT inspection, hearing grossly normal, pharynx normal, TMs normal Neck: Present: non-tender, full range of motion, supple, normal inspection, trachea midline Breasts: Present: Exam deferred Respiratory: Present: chest non-tender Cardiovascular/Chest: Present: normal peripheral pulses Abdomen: Present: Normal bowel sounds /Rectal: Present: Exam deferred Extremity: Present: normal range of motion Skin Exam: Present: normal color Lymphatic: Present: no adenopathy Neurologic: Present: vascular sonographer II-XII nml as tested Appearance: Present: appropriate appearance Eye contact: Present: cooperative Thoughts: Present: normal thought pattern Assessment/Plan Plan Narrative: 1. continue IV Amiodarone 2. Continue digoxin 3. Reduce dose of Metoprolol to 50 mg starting tomorrow morning and hold tonights dose. 4. Continue with Methimazole 10mg q8H. 5 Repeat AM lab 6. If BP drops below 100 systolic again give 1 L NS. bolus rate. 7. Notify me if she converts to NSR. - Problems/Diagnosis (1) Atrial fibrillation with rapid ventricular response Problem: Acute (2) Rheumatoid arthritis Problem: Chronic Qualifiers: Rheumatoid arthritis location: multiple sites Rheumatoid factor presence: with rheumatoid factor Qualified Code(s): M05.79 - Rheumatoid arthritis with rheumatoid factor of multiple sites without organ or systems involvement (3) Hyperthyroidism Problem: Acute
[2019-02-17] MEDS: AMIODARONE HCL 900 MG in DEXTROSE 5 % IN WATER 500 ML IV SCH ×2 (21:00)
[2019-02-18] MEDS: METHIMAZOLE 10 MG TABLET PO SCH ×3 (06:34→22:43)
[2019-02-18] MEDS ORDERED: METOPROLOL TARTRATE 100 MG TABLET PO SCH (09:00)
[2019-02-18] MEDS: SALSALATE 500 MG TABLET PO SCH ×2 (10:09→21:15)
[2019-02-18] MEDS: FOLIC ACID 0.4 MG TABLET PO SCH (10:09)
[2019-02-18] MEDS: sulfaSALAzine 500 MG TABLET PO SCH ×2 (10:09→21:14)
[2019-02-18] MEDS: amLODIPine BESYLATE 10 MG TABLET PO SCH (10:09)
[2019-02-18] MEDS: APIXABAN 5 MG TABLET PO SCH ×2 (10:09→21:14)
[2019-02-18] MEDS: HYDROCHLOROTHIAZIDE 25 MG TABLET PO SCH (10:10)
[2019-02-18] MEDS: DULoxetine HCL 20 MG CAPSULE.SA PO SCH (10:10)
[2019-02-18] MEDS: FERROUS SULFATE 325 MG TABLET PO SCH (10:10)
[2019-02-18] MEDS: ENALAPRIL MALEATE 5 MG TABLET PO SCH (10:10)
[2019-02-18] MEDS: METOPROLOL TARTRATE 50 MG TABLET PO SCH ×2 (10:11→21:14)
--- NOTE | 2019-02-18 20:43 | PN ---
Subjective - Date and Time Seen Date: 02/18/19 Time: 20:37 Subjective Narrative: Garima has had an uneventful night and day the past 24 hrs. She is comfortable and tolerating her meds well. Her HR is back up into the 130s-140s. BP has been ok. RR normal. Remains in Afib/flutter with RVR. Morning lab is unremarkable. HRIR, L-CTA, abd ok. Objective - Review of Systems Generalized/Overall Review: Reports: No Symptoms Reported EENTM: Reports: No Symptoms Reported Respiratory: Reports: No Symptoms Reported Cardiac: Reports: Palpitations Abdominal: Reports: No Symptoms Reported Genitourinary Symptoms: Reports: No Symptoms Reported Musculoskeletal Complaints: Reports: No Symptoms Reported Neurological: Reports: No Symptoms Reported Skin: Reports: No Symptoms Reported Endocrine: Reports: No Symptoms Reported Misc: All systems neg except as marked - Vitals Vitals: Last Vital Signs Temp 36.9 C 02/18/19 15:17 Pulse 132 H 02/18/19 20:00 Resp 16 02/18/19 20:00 BP 107/73 02/18/19 20:00 Pulse Ox 98 02/18/19 20:00 - Exam Constitutional: Present: Alert, Oriented x3, Cooperative, Well developed, Well nourished, No distress ENT Exam: Present: normal ENT inspection, hearing grossly normal, pharynx normal, TMs normal Neck: Present: non-tender, full range of motion, supple, normal inspection, trachea midline Breasts: Present: Exam deferred Respiratory: Present: chest non-tender, lungs clear, normal breath sounds, no respiratory distress Cardiovascular/Chest: Present: normal peripheral pulses, tachycardia, irregula rly irregular Abdomen: Present: Normal bowel sounds, soft, nontender, nondistended, no rebound tenderness, no hepatospenomegaly, no masses /Rectal: Present: Exam deferred, External genitalia normal Extremity: Present: normal range of motion, non-tender, normal inspection, no pedal edema, no calf tenderness Skin Exam: Present: normal color, warm/dry, no cyanosis Lymphatic: Present: no adenopathy Neurologic: Present: nipple machine operator II-XII nml as tested Appearance: Present: appropriate appearance, appropriate insight, neat Eye contact: Present: cooperative, good eye contact, normal speech Thoughts: Present: normal thought pattern, no apparent hallucination Assessment/Plan Plan Narrative: Continue current tx. through the night. Morning lab ordered Transfer to [facility] tomorrow morning and make arrangements to leave about 0900. She is to proceed with the planned DONNA and DC cardioversion by Dr. Gill. - Problems/Diagnosis (1) Atrial fibrillation with rapid ventricular response Problem: Acute (2) Rheumatoid arthritis Problem: Chronic Qualifiers: Rheumatoid arthritis location: multiple sites Rheumatoid factor presence: with rheumatoid factor Qualified Code(s): M05.79 - Rheumatoid arthritis with rheumatoid factor of multiple sites without organ or systems involvement (3) Hyperthyroidism Problem: Acute
[2019-02-18 21:09] LABS: Digoxin 0.5 ng/mL (0.5-2.0); T4 Free * 1.83 ng/dL (0.76-1.46); TSH * Less than 0.007 uIU/mL (0.358-3.74)
[2019-02-18] MEDS: AMIODARONE HCL 900 MG in DEXTROSE 5 % IN WATER 500 ML IV SCH ×2 (21:13)
[2019-02-19] MEDS: ENALAPRIL MALEATE 5 MG TABLET PO SCH (08:02)
[2019-02-19] MEDS: HYDROCHLOROTHIAZIDE 25 MG TABLET PO SCH (08:02)
[2019-02-19] MEDS: DULoxetine HCL 20 MG CAPSULE.SA PO SCH (08:03)
[2019-02-19] MEDS: FERROUS SULFATE 325 MG TABLET PO SCH (08:03)
[2019-02-19] MEDS: sulfaSALAzine 500 MG TABLET PO SCH (08:03)
[2019-02-19] MEDS: amLODIPine BESYLATE 10 MG TABLET PO SCH (08:03)
[2019-02-19] MEDS: METOPROLOL TARTRATE 50 MG TABLET PO SCH (08:03)
[2019-02-19] MEDS: APIXABAN 5 MG TABLET PO SCH (08:03)
[2019-02-19] MEDS: SALSALATE 500 MG TABLET PO SCH (08:03)
[2019-02-19] MEDS: FOLIC ACID 0.4 MG TABLET PO SCH (08:03)
--- NOTE | 2019-02-19 08:03 | DS ---
Transfer Discharge Summary - Diagnosis(s)/Problems (1) Atrial fibrillation with rapid ventricular response Problem: Acute (2) Hyperthyroidism Problem: Acute (3) Rheumatoid arthritis Problem: Chronic - Course Description of Stay: Garima Jolly is a 63yo. wh fe. admitted last Tuesday morning with afib and flutter with RVR in the 150-190 range. She was initially started on Cardizem and the dose advanced to its maximum recommended and she did not slow down or convert. She was then changed to amiodarone giving a loading dose and keeping her at 1 mg/min until she had received about 650 mg IV. This was then reduced to 0.5 mg/min and her heart rate stayed high. The TSH then came back low and the free T4 was high. She does not take thyroid medicine so this is primary hyperthyroidism and is probably what is driving the heart rate. A thyroid ultrasound shows heterogenous findings but no nodules, enlargement, or vascular abnormalities. Dr. Valladares was asked to consult and graciously agreed to do so and his recommendations are much appreciated. She had had quite a lot of diarrhea for the 2 weeks prior to admission. I then added digoxin and increased her metoprolol from 50 mg twice daily, that she takes chronically, to 100 mg twice daily. Yesterday her heart rate then slowed into the 1 teens to 120s but her blood pressure also dropped and at one point the systolic was less than 100. The dig levels have come back therapeutic. I held 1 dose of metoprolol Tuesday night and then started back at 50 mg twice daily on Tuesday. Her heart rate has then gone back into the 120s to 150s range. I then started her on methionine 10 mg every 8 hours on Tuesday. She has been asymptomatic and in no distress during all this time. She reports that she started feeling more tired and weaker about 2 weeks ago. She also reports that she has had one other time when she had an irregular heart rhythm perhaps 3 months ago and it was detected in her doctor's office. She is a patient of Dr. Moreno. I had spoken with Dr. Gill on Tuesday and he had asked me to give her 1 more loading dose of amiodarone and I gave 150 mg over 10 minutes. It did not make any difference in her heart rate. This morning she is feeling a bit dizzy with normal vital signs except for heart rate being elevated in the 120s to 150s. Arrangements have been made for her to be transferred to [facility] where she will have a transesophageal echo and if appropriate followed by DC cardioversion. Further care will be determined by the outcome of that. She will get her morning medications except for her oral arthritis medicines as she will have no food in her stomach. She will then be able to be transferred per EMS ground ambulance to arrive there are no later than 10 AM. Her procedure is scheduled for 11:30 AM this morning. Consultation Done:: Dr. Valladares Procedures Performed: none - Results and Findings Results and Findings: Laboratory Results - last 24 hr 02/18/19 20:35 TSH Less than 0.007 L Free T4 1.83 H Digoxin 0.5 - Medications Medications: Active Medications Amlodipine Besylate (Norvasc) 10 mg PO DAILY [facility] Stop: 03/18/19 09:01 Last Admin: 02/18/19 10:09 Dose: 10 mg Documented by: Apixaban (Eliquis) 5 mg PO BID [facility] Stop: 03/18/19 09:31 Last Admin: 02/18/19 21:14 Dose: 5 mg Documented by: Duloxetine HCl (Cymbalta) 20 mg PO DAILY [facility] Stop: 03/18/19 09:01 Last Admin: 02/18/19 10:10 Dose: 20 mg Documented by: Enalapril Maleate (Vasotec) 10 mg PO DAILY [facility] Stop: 03/18/19 09:01 Last Admin: 02/18/19 10:10 Dose: 10 mg Documented by: Ferrous Sulfate (Ferrous Sulfate) 325 mg PO DAILY [facility] Stop: 03/18/19 09:01 Last Admin: 02/18/19 10:10 Dose: 325 mg Documented by: Folic Acid (Folic Acid) 0.8 mg PO DAILY [facility] Stop: 03/18/19 09:01 Last Admin: 02/18/19 10:09 Dose: 0.8 mg Documented by: Hydrochlorothiazide (Hydrodiuril) 25 mg PO DAILY [facility] Stop: 03/18/19 09:01 Last Admin: 02/18/19 10:10 Dose: 25 mg Documented by: Amiodarone HCl 900 mg/ (Dextrose/Water) 518 mls @ 0 mls/hr IV Q24H [facility]; Protocol Stop: 03/18/19 19:46 Last Admin: 02/18/19 21:13 Dose: 16.7 mls/hr, 16.7 mls/hr Documented by: Methimazole (Tapazole) 10 mg PO Q8H [facility] Stop: 03/18/19 14:46 Last Admin: 02/18/19 22:43 Dose: 10 mg Documented by: Metoprolol Tartrate (Lopressor) 50 mg PO BID [facility] Stop: 03/20/19 09:01 Last Admin: 02/18/19 21:14 Dose: 50 mg Documented by: Salsalate (Disalcid) 1,500 mg PO BID [facility] Stop: 03/17/19 21:01 Last Admin: 02/18/19 21:15 Dose: 1,500 mg Documented by: Sulfasalazine (Azulfidine) 1,500 mg PO BID [facility] Stop: 03/17/19 21:01 Last Admin: 02/18/19 21:14 Dose: 1,500 mg Documented by: Discontinued Medications Digoxin (Lanoxin) 0.25 mg IV Q6H [facility] Stop: 02/16/19 12:16 Last Admin: 02/16/19 06:56 Dose: 0.25 mg Documented by: Digoxin (Lanoxin) 0.25 mg IV ONCE ONE Stop: 02/16/19 08:46 Last Admin: 02/16/19 08:44 Dose: 0.25 mg Documented by: Digoxin (Lanoxin) 0.125 mg IV Q6H [facility] Stop: 02/17/19 06:16 Last Admin: 02/17/19 06:50 Dose: 0.125 mg Documented by: Diltiazem HCl (Cardizem) 10 mg IV ONCE ONE Stop: 02/15/19 14:28 Last Admin: 02/15/19 14:31 Dose: 10 mg Documented by: Diltiazem HCl (Cardizem) 15 mg IV ONCE ONE Stop: 02/15/19 15:22 Last Admin: 02/15/19 15:25 Dose: 15 mg Documented by: Furosemide (Lasix) 40 mg IV ONCE ONE Stop: 02/15/19 16:10 Last Admin: 02/15/19 17:30 Dose: 40 mg Documented by: Sodium Chloride (Sodium Chloride 0.9%) 1,000 mls @ 999 mls/hr IV .Q1H1M ONE Stop: 02/15/19 14:46 Last Infusion: 02/15/19 14:58 Dose: Infused Documented by: Diltiazem HCl 125 mg/ Dextrose (/Water) 125 mls @ 0 mls/hr IV TITR PRN; Protocol PRN Reason: Arrhythmia Stop: 03/17/19 15:35 Last Titration: 02/15/19 19:35 Dose: 0 mg/hr, 0 mls/hr Documented by: Amiodarone HCl 900 mg/ (Dextrose/Water) 518 mls @ 0 mls/hr IV Q24H [facility]; Protocol Stop: 02/16/19 19:06 Last Admin: 02/16/19 21:32 Dose: Not Given Documented by: Amiodarone HCl/Dextrose (Nexterone 150 Mg Piggyback) 150 mg in 100 mls @ 600 mls/hr IV ONCE ONE Stop: 02/15/19 19:34 Last Infusion: 02/15/19 19:48 Dose: Infused Documented by: Amiodarone HCl 150 mg/ (Dextrose/Water) 103 mls @ 618 mls/hr IV ONCE ONE Stop: 02/16/19 14:24 Last Infusion: 02/16/19 14:32 Dose: Infused Documented by: Metoprolol Tartrate (Lopressor) 50 mg PO BID [facility] Stop: 03/17/19 21:01 Last Admin: 02/16/19 08:07 Dose: 50 mg Documented by: Metoprolol Tartrate (Lopressor) 100 mg PO BID [facility] Stop: 03/18/19 21:01 Last Admin: 02/17/19 09:34 Dose: 100 mg Documented by: - Disposition Disposition: Short Term Hospital Inpatient Condition: Stable Discharge Date: 02/19/19 Discharge Time: 09:00
[2019-02-19] MEDS: METHIMAZOLE 10 MG TABLET PO SCH (08:04)
[2019-02-19 10:23] VITALS: BP 119/67
== END 2019-02-19 10:15 | disposition short-term general hospital (02) | DRG 310 ==
LOC: ER 13:31 → SCU 16:12
PROVIDERS: ADMIT Family Medicine; ATTEND Internal Medicine
DX: E78.5 Hyperlipidemia, unspecified; E05.90 Thyrotoxicosis, unspecified without thyrotoxic crisis or storm; M06.9 Rheumatoid arthritis, unspecified; I10 Essential (primary) hypertension; I48.2 Chronic atrial fibrillation; R11.10 Vomiting, unspecified; R19.7 Diarrhea, unspecified
CPT/HCPCS: 36415; 71020; 71046; 74019; 74020; 76536; 80048; 80053; 80061; 80162; 83519; 83735; 83880; 84439; 84443; 84484; 85025; 86376; 93005; 93306; 96361; 96374; 96376; 99285